=== PATIENT | female | born 2000 | race Two or more races ===

== ENCOUNTER 2024-06-02 14:15 | Outpatient (RCR) | payer MEDICAID, SELFPAY ==
--- NOTE | 2024-05-26 15:26 | XR_ITS ---
Examination: Biophysical profile, ultrasound Date and time of exam: May 26, 2024 1534 hours INDICATIONS: Diagnosis maternal obesity Technique: Multiple transabdominal sonographic images of the pelvis abdomen obtained. Attention is directed to the breathing movement, gross body movement, amniotic fluid volume and tone. Findings: Amniotic fluid index 12.2 cm Total biophysical profile is 8 of 8. breathing movement is 2. Gross body movement is 2. tone is 2. Qualitative amniotic fluid volume is 2 Impression: Biophysical profile is 8 of 8.
[2024-05-26 15:41] VITALS: BP 121/73; PULSE 105; RESP 16; TEMP 36.7
--- NOTE | 2024-06-02 14:21 | XR_ITS ---
Examination: Biophysical profile, ultrasound Date and time of exam: June 02, 2024 1427 hrs. Indications: Maternal obesity Technique: Multiple transabdominal sonographic images of the pelvis abdomen obtained. Attention is directed to the breathing movement, gross body movement, amniotic fluid volume and tone. Findings: Amniotic fluid index 12.4 cm Total biophysical profile is 8 of 8. breathing movement is 2. Gross body movement is 2. tone is 2. Qualitative amniotic fluid volume is 2 Impression: Biophysical profile is 8 of 8.
[2024-06-02 15:23] VITALS: BP 132/73; PULSE 98; RESP 16; TEMP 36.8
== END 2024-06-02 23:59 | disposition home or self-care (01) ==
LOC: S4S1 14:15
PROVIDERS: Referring Provider Student in an Organized Health Care Education/Training Program; Visit Provider Student in an Organized Health Care Education/Training Program
DX: O99.213 Obesity complicating pregnancy, third trimester (principal); E66.9 Obesity, unspecified; Z3A.38 38 weeks gestation of pregnancy
CPT/HCPCS: 59025; 76819

== ENCOUNTER 2024-06-06 15:19 | Inpatient (IN) | payer MEDICAID, SELFPAY ==
[2024-06-06] VITALS (19 sets, daily range): BP systolic 94–128; BP diastolic 57–82; PULSE 77–251; RESP 18; TEMP 36.8–37.1; O2SAT 78–98; BMI 35.9
[2024-06-06 16:15] LABS: Basophils % (Auto) 0 % (0-2.5); Eosinophils % (Auto) 1 % (0-10); Hematocrit 37.6 % (36.0-46.0); Hemoglobin 12.8 g/dL (12.0-16.0); Immature Granulocytes % (Auto) 0 % (0-0); Immature Granulocytes Auto 0.03 Thou/mm3 (0.00-0.00); Lymphocytes # (Auto) 1.4 Thou/mm3 (1.0-4.8); Lymphocytes % (Auto) 19 % (10-50); Mean Corpuscular Hemoglobin 29.8 pg (25.0-35.0); Mean Corpuscular Volume 87 fL (80-100); Monocytes # (Auto) 0.4 Thou/mm3 (0.0-0.8); Monocytes % (Auto) 5 % (0-12); Neutrophils # (Auto) 5.8 Thou/mm3 (1.8-7.7); Neutrophils % (Auto) 75 % (37-80); Nucleated Red Blood Cell % 0 /100 WBC (0); Platelet Count 183 Thou/mm3 (140-440); RDW Standard Deviation 40.5 fL (36.4-46.3); White Blood Count 7.8 Thou/mm3 (3.6-11.0)
--- NOTE | 2024-06-06 16:50 | ESHP_ITS ---
Documentation for date of: 06/06/24 OB Labor/Induct. HPI History of Present Illness Chief complaint: Patient presents for scheduled induction of labor : 2 Term pregnancies: 1 pregnancies: 0 Living children: 1 History of Abortions: Spontaneous and Elective: 0 History of Vaginal deliveries: 1 History of sections: No History of : No FREDA: 06/11/24 Gestational Age (weeks): 39 Gestational Age (days): 2 Indication for induction: other (Elevated maternal BMI) History of present illness: Patient is a 23-year-old -0-0-1 at 39 2/7 weeks status post vaginal delivery 5 years ago of a daughter without complications. The patient had IV pain medications during that labor. She presents as scheduled induction of labor from [facility] for maternal elevated BMI. On admission she reports irregular contractions, good movement, no loss of fluids, no vaginal bleeding. GBBS - History of Present Dating criteria: LMP confirmed by 1st trimester US Adequate Care: Yes Ultrasounds: normal mid trimester US Obstetrical complications: none Medical complications: none Labs Labs: Negative: Hepatitis B, HIV, Chlamydia, Gonorrhea and Group Beta Strep Past Medical History Surgical History SURGICAL: Negative Section Meds Home Medications and Allergies Allergies Allergy/AdvReac Type Severity Reaction Status Date / Time No Known Allergies Allergy Verified 01/04/21 21:32 OB Exam Physical Exam Vital signs: Pulse BP Pulse Ox 107 H 127/82 97 06/06/24 15:36 06/06/24 15:36 06/06/24 15:57 OB Results Labs 06/06/24 15:35 Labs: Short CBC 06/06/24 Range/Units 15:35 WBC 7.8 (3.6-11.0) Thou/mm3 Hgb 12.8 (12.0-16.0) g/dL Hct 37.6 (36.0-46.0) % Plt Count 183 (140-440) Thou/mm3 OB Assessment & Plan Assessment and Plan (1) Term : Status: Acute Assessment and plan: Admit for Cytotec induction of labor. All questions were answered all consents were signed. Plan Cytotec 50 mcg PO every 4 hours (2) Obesity affecting in third trimester: Status: Acute Additional Plan Induction method: per misoprostol protocol Plan: induction (2) Obesity affecting in third trimester Qualifiers: Obesity type affecting : other obesity due to excess calories Q ualified Code(s): O99.213 - Obesity complicating , third trimester; E66.09 - Other obesity due to excess calories
[2024-06-06] MEDS: MISOPROSTOL 50 mCg TABLET PO ×2 (17:01→22:08)
[2024-06-06 17:12] LABS: Syphilis Nonreactive (Nonreactive)
[2024-06-07] VITALS (29 sets, daily range): BP systolic 91–136; BP diastolic 54–82; PULSE 71–115; RESP 16–18; TEMP 36.4–36.8; O2SAT 98
[2024-06-07] MEDS: OXYTOCIN in NS 30 units 30 UNIT/500 ML BAG IV (06:30)
--- NOTE | 2024-06-07 07:30 | PD.LDPN ---
Documentation for date of: 06/07/24 OB Labor Progress Note Pain Control Pain control: tolerating well Pelvic Exam Dilation (cm): 3-4 Effacement (%): 80 station: -2 Amniotic membrane status: Intact Comments: AROMed and at 730. Clear bloody tinged fluid. Contractions Monitor mode: External Contraction intensity: Mild Status status: Category l Assessment and Plan Pitocin rate (mU/min): 2 Assessment: induction ongoing Plan OB labor note: continuous present management Comments: Patient's status post 50 mcg Cytotec x 2. Pitocin started overnight patient at 2 milliunits/min. She rates her contractions are a 5 out of 10. She does not desire epidural. AROM was performed and intrauterine pressure catheter placed will continue Pitocin augmentation as needed. Anticipate . heart tones 140s and reactive category 1.
[2024-06-07] MEDS: fentaNYL CIT INJ 50 mCg/ML AMP 2ML 100 MCG IVP ×2 (10:36→12:50)
[2024-06-07] MEDS: RINGERS LACTATED 1000 ML 1,000 ML 100 ML IV (10:43)
[2024-06-07] MEDS: OXYTOCIN in NS 20 units 20 UNIT/1,000 ML BAG 125 UNIT IV (14:30)
[2024-06-07] MEDS: METHYLERGONOVINE INJ 0.2 MG/ML VIAL IM (14:36)
[2024-06-07] MEDS: BENZO/LANO/ALOE (Dermoplast) 60 GM CAN 1 SPRAY TOP (14:41)
--- NOTE | 2024-06-07 14:46 | PD.LDDELS ---
Data ([place]) Data Hx Section: No Maternal Blood Type: A Pos Rubella Titre: Positive RPR: Non-reactive Labs: Negative: RPR, Hepatitis B, HIV, Chlamydia, Gonorrhea and Group Beta Strep : 2 Para: 1 Term: 1 : 0 Livin : 0 Delivery Data ([facility]) Labor Data Stimulated/Augmented: Yes Induction: Yes Method: Oxytocin (and PO cytotec 50 x 2, and AROM) ROM Date: 06/07/24 ROM Time: 07:26 Rupture Type: AROM Amniotic Fluid: Clear Delivery Data EDC: 06/11/24 EDC calculated by:: LMP/early US confirmation Labor Onset Stage 1 Date: 06/07/24 Labor Onset Stage 1 Time: 12:50 Labor Onset Stage 2 Date: 06/07/24 Labor Onset Stage 2 Time: 14:20 Delivery Date: 06/07/24 Delivery Time: 14:24 Gestational age (weeks): 39 Gestational age (days): 3 Placenta Delivery Date: 06/07/24 Placenta Delivery Time: 14:28 Length stage 2 (minutes): 3 Length stage 3 (minutes): 4 Delivered by: Sylvia Reeves Delivery nurse: Meghana Elias Supervisor Gluing at delivery: No Support person(s) at delivery: Pt mother and [id number] Other staff at delivery: 2nd Nurse Other staff at delivery: Blank, Kenan Delivery Method Delivery: Vaginal Delivery Type: Spontaneous Presentation: Vertex Position: OA Anesthesia Type Primary Anesthesia: Local Secondary Anesthesia: None Delivery Room Medications Post Delivery Medications: Ergotrate Placenta Placenta Delivery: Spontaneous Placenta Cultures Obtained: No Placenta Sent for Examination: No Cord Sample: Cord Blood Obtained Episiotomy Episiotomy: None Lacerations #1: Perineal: 1st degree Perineal repair Sutures used for repair: other (2-0 chromic) EBL Estimated blood loss (ml): 300 Umbilical Cord Umbilical Vessels: 3 Nuchal Cord: x1 Body Cord: None Additional Procedures The patient is a 24-year-old -0-0-1 at 39 4/7 weeks being induced for an elevated BMI. The pt made slow progress overnight. The patient was 8 cm approximately 10 minutes before delivery and felt pressure and began pushing. She pushed through 2 contractions delivering a liveborn male at 1424. Findings: Liveborn male in the ALYSE presentation with a loose nuchal cord x 1, no meconium. Apgars were 9 and 9 weight was 3370 g or approximately 7 pounds 7 ounces. After delivery some brisk bleeding was noted, this was treated with vigorous uterine massage, IV Pitocin and IM Methergine. The patient sustained a very small first-degree perineal laceration repaired under local anesthesia using one single [id number] suture of 2-0 chromic. Complications were none. Condition, both mother and were in stable condition in the delivery room. Complications Complications: None [place] Data ([place]) [place] Data order: 2 Infant Gender: Male Infant Weight Grams: 3370 1 Minute Total: 9 5 Minute Total: 9
[2024-06-07] MEDS: IBUPROFEN TAB 400 MG TABLET 800 MG PO (14:49)
[2024-06-07 20:50] LABS: Basophils % (Auto) 0 % (0-2.5); Eosinophils % (Auto) 0 % (0-10); Hemoglobin 10.1 g/dL (12.0-16.0); Immature Granulocytes % (Auto) 0 % (0-0); Immature Granulocytes Auto 0.03 Thou/mm3 (0.00-0.00); Lymphocytes # (Auto) 1.3 Thou/mm3 (1.0-4.8); Lymphocytes % (Auto) 11 % (10-50); Mean Corpuscular HGB Conc 34.8 g/dl (31.0-37.0); Mean Corpuscular Hemoglobin 30.4 pg (25.0-35.0); Mean Corpuscular Volume 87 fL (80-100); Monocytes # (Auto) 0.7 Thou/mm3 (0.0-0.8); Monocytes % (Auto) 6 % (0-12); Neutrophils # (Auto) 9.7 Thou/mm3 (1.8-7.7); Neutrophils % (Auto) 83 % (37-80); Nucleated Red Blood Cell % 0 /100 WBC (0); Platelet Count 141 Thou/mm3 (140-440); RDW Standard Deviation 39.9 fL (36.4-46.3); Red Blood Count 3.32 Miln/mm3 (4.00-5.20); White Blood Count 11.8 Thou/mm3 (3.6-11.0)
[2024-06-07] MEDS: DOCUSATE SOD 100 MG CAPSULE PO (20:51)
[2024-06-08 04:07] VITALS: BP 116/75; PULSE 79; RESP 16; TEMP 36.9; O2SAT 98
--- NOTE | 2024-06-08 07:14 | PD.LDPPPRG ---
Subjective Subjective Interval history: Patient denies any problem or complaint. She is voiding and ambulating and tolerating a regular diet. She denies any excessive vaginal bleeding or dizziness or lightheadedness. She denies any chest pain palpitations or shortness of breath or lower extremity pain. Exam Vital Signs Temp Pulse Resp BP Pulse Ox O2 Del Method 98.4 F 79 16 116/75 98 Room Air 06/08/24 04:07 06/08/24 04:07 06/08/24 04:07 06/08/24 04:07 06/08/24 04:07 06/08/24 04:07 Routine Respiratory Exam Comments: Clear to auscultation bilaterally Routine Cardiovascular Exam Comments: Regular rate and rhythm Routine Abdominal Exam Comments: Fundus is firm and nontender Routine Extremities Exam Comments: Nontender Objective Labs 06/07/24 20:43 Labs: Laboratory Results - last 24 hr 06/07/24 20:43 WBC 11.8 H D RBC 3.32 L Hgb 10.1 L D Hct 29.0 L MCV 87 MCH 30.4 MCHC 34.8 RDW Std Deviation 39.9 Plt Count 141 D Neut % (Auto) 83 H Lymph % (Auto) 11 Howell % (Auto) 6 Eos % (Auto) 0 Baso % (Auto) 0 Neut # (Auto) 9.7 H Lymph # (Auto) 1.3 Howell # (Auto) 0.7 Eos # (Auto) 0.0 Baso # (Auto) 0.0 Immature Gran # (Auto) 0.03 H Absolute Nucleated RBC 0.00 Immature Gran % 0 Nucleated RBC % 0 Assessment & Plan Problem List (1) Term : Status: Acute (2) Obesity affecting in third trimester: Status: Acute Assessment Comment Assessment comment: day #1 status post spontaneous vaginal delivery Discharge home discharge instructions given follow-up in the office in 6 weeks Time Spent With Patient Time: Total time spent is greater than 50% in coordination of care (as documented) at patient's floor/unit and/or counseling patient:
--- NOTE | 2024-06-08 07:16 | PD.LDDS ---
DS: Providers Provider Date of admission: 06/06/24 15:19 Primary care physician: Physician No Primary/Family Admitting Provider: Sylvia Reeves MD (OB Clinic) Attending Provider on Admission: Manpreet Roman MD Consults: 06/07/24 14:44 Referral Routine Comment: Attending Provider on DC: Manpreet Roman MD Discharging Provider: Manpreet Roman MD DS: Diagnosis Problem List Completed Was Problem List Reviewed/Reconciled?: Yes Summary/Hosp Course Brief History: Patient is a 23-year-old -0-0-1 at 39 2/7 weeks status post vaginal delivery 5 years ago of a daughter without complications. The patient had IV pain medications during that labor. She presents as scheduled induction of labor from [facility] for maternal elevated BMI. On admission she reports irregular contractions, good movement, no loss of fluids, no vaginal bleeding. GBBS - Time Spent with Patient Time attestation: Total time spent providing and/or coordinating discharge services: Exam Vital Signs Temp Pulse Resp BP Pulse Ox O2 Del Method 98.4 F 79 16 116/75 98 Room Air 06/08/24 04:07 06/08/24 04:07 06/08/24 04:07 06/08/24 04:07 06/08/24 04:07 06/08/24 04:07 Discharge Plan Plan Patient Disposition: HOME (Self Care) Patient condition on transfer: Stable Prescriptions/Referrals Prescriptions/Med Rec: New ibuprofen 600 mg tablet 600 mg PO Q6H PRN (Reason: pain) Qty: 30 0RF Discontinued azithromycin 250 mg tablet See Rx Instructions .ROUTE .COMPLEX Qty: 6 0RF Rx Instructions: For 250 mg dose pack: take 500 mg today (day 1), then 250 mg for 4 days (days 2-5) acetaminophen [Tylenol Extra Strength] 500 mg tablet 1,000 mg PO QID PRN (Reason: fever or pain) Qty: 30 0RF Referrals: No Primary/Family,Physician [Primary Care Provider] - Patient/Caregiver Discharge Instructions Discharge Activity: activity as tolerated Other Discharge Activity Instructions:: Follow up office 6 weeks Print Language: Divehi Stand Alone Forms: Ember Award Info., Patient Portal Info Letter Discharge Order Discharge Orders: Discharge (Routine); Ordered 06/08/24 Ordered By: Manpreet Roman Planned Discharge Date 06/08/24
[2024-06-08 08:00] VITALS: BP 115/77; PULSE 80; RESP 16; TEMP 36.4; O2SAT 98
[2024-06-08] MEDS: DOCUSATE SOD 100 MG CAPSULE PO (08:33)
[2024-06-08 11:45] VITALS: BP 101/71; PULSE 88; RESP 17; TEMP 36.9; O2SAT 97
== END 2024-06-08 17:40 | disposition home or self-care (01) | DRG 560 ==
LOC: S4SX 15:26 → S4NX 06-07 16:46
PROVIDERS: Admitting Provider Obstetrics & Gynecology; Visit Provider Specialist
DX: O99.214 Obesity complicating childbirth (principal); Z37.0 Single live birth; Z3A.39 39 weeks gestation of pregnancy; O70.0 First degree perineal laceration during delivery; O69.81X0 Labor and delivery complicated by cord around neck, without compression, not applicable or unspecified; E66.09 Other obesity due to excess calories
CPT/HCPCS: 36415; 59409; 85025; 86780; 86850; 86900; 86901; J2210; J2590; J3010; J7120; A9270

== ENCOUNTER 2024-12-08 08:48 | Outpatient (AMB) | payer MEDICAID, SELFPAY ==
[2024-12-08 09:07] VITALS: BP 118/82; PULSE 76; RESP 14; TEMP 36.5; O2SAT 98; BMI 35.4
--- NOTE | 2024-12-08 09:07 | OBCLNT_ITS ---
Vital Signs 12/08/24 09:07 Height 1.63 m Height Method Measured Weight 93.667 kg Weight Measurement Method Standing Scale BMI 35.4 BP 118/82 Blood Pressure Source Automatic Cuff Blood Pressure Location Left Upper Arm Position Sitting Respiration 14 Pulse 76 Pulse Source Monitor Temp 97.7 F Temp Source Oral Pulse Oximetry (%) 98 Oxygen Delivery Method Room Air Allergies/Home Meds Allergies & Medications Allergies No Known Allergies Allergy (Verified 12/08/24 09:08) Intake Visit Data Collection New Patient or Established: Established Patient (seen at [facility] within 3 years) Reason for Visit:: INITIAL CARE Seen by Clinical Staff ONLY (RN/MA): No Safety Physician Required: No Do You Feel Safe at Home: Yes Authorities Contacted: N/A PCP or OBGYN visit in last 3 months: Yes Hx Now: Yes Are you currently on any form of Control: No Last menstrual period: 09/27/24 Pain Present Currently: No Pain Scale Used: Moreno-Capps/Numerical Pain scale:: 0 Smoking Status Smoking Status: Former smoker Questionnaires Covid-19 Vaccine Questionnaire Has patient been vacinated for Covid-19 Have you been vacinated for Covid-19: No PHQ-9 PHQ-2 Over the last 2 weeks, how often have you been bothered by any of the following problems? 1. Little interest or pleasure in doing things: not at all 2. Feeling down, depressed, or hopeless: not at all Total score: 0 PHQ-9 3. Trouble falling or staying asleep, or sleeping too much: Not at all 4. Feeling tired or having little energy: Not at all 5. Poor appetite or overeating: Not at all 6. Feeling bad about yourself - or that you are a failure or have let yourself or your family down: Not at all 7. Trouble concentrating on things, such as reading the newspaper or watching television: Not at all 8. Moving or speaking so slowly that other people could have noticed? - Or the opposite - being so fidgety or restless that you have been moving around a lot more than usual: not at all 9. Thoughts that you would be better off or of hurting yourself in some way: Not at all Total score: 0 Source: Developed by Drs. Tito Richey, Rebeca B.W. Roel Ramos and colleagues, with an educational luann from [employer]. Depression screen completed yes Social History Living Situation History Lives With: Family Housing: House Tobacco History Smoking Status: Former smoker Second Hand Smoke Exposure: No Alcohol History Alcohol Intake: Former Alcohol Intake Frequency: holidays/special occasions only Domestic Abuse History Do You Feel Safe at Home: Yes History of Present Illness HPI Narrative 24-year-old 3 para 2 for OBI. Patient's last period September 27, 2024. Estimated due date July 03, 2025. Patient and her partner are very happy about the . Patient denies any SAB complaints like bleeding or cramping. She denies movement. Patient denies any history of social habits. She denies surgeries. And denies any chronic illnesses. 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: Past Medical History Past Medical History: No Hx Neurological Disorders, No Hx Breast Cancer, Yes Hx Cardiac Disorders, Yes Hx Hypertension, No Hx Cancer, No Hx Blood Disorders, No Hx Gastrointestinal Disorders, No Hx Renal Disease, No Hx Diabetes Mellitus Type 1 and No Hx Diabetes Mellitus Type 2 OB Initial Visit OB Flowsheet OB Flowsheet Initial Weight: Not Recorded Date -?-?-?-?-?-?-?-?-?-?-?-?- EGA Weight BP Alb Glu CTX Pres Fundal ht FHR Mov Dilation Station Effacement Hx Notes Visit Note 12/08/24 -?-?-?-?-?-?-?-?-?-?-?-?- 10w 2d 93.667 kg 118/82 absent unknown 10 135 absent 24-year-old 2 para 2 for initial OB. Her last period September 27, 2024. This gives a due date of July 03, 2025. Patient has sure dates she checked.'s. She has not had any problems so far. No complaints of nausea or vomiting. She.denies any SAB complaints at this time Schedule ultrasound with Dr. Pineda for anatomy scan. Continue prenatals. Patient was given lab slip for OB panel, NIPT, and carrier screening. And A1c. Return in 4 weeks OB check Menstrual History Menstrual reliability: unknown Flow: normal Menstrual regularity: irregular Monthly: No Age at menarche: 14 On control pills at conception: No Associated symptoms (LMP): Reports nausea, fatigue and breast tenderness OB History : 3 Para: 2 # of Living Children: 2 Delivery History 1st : Child's name: JASSI date: 02/09/19 sex: female Gestational age at delivery (weeks): 40 Delivery type: vaginal Delivery complications: NONE History of depression before or after : No 2nd : Child's name: LEANN date: 06/07/24 sex: male Gestational age at delivery (weeks): 40 Delivery type: vaginal Delivery complications: NONE History of depression before or after : No Infection History & Risk Evaluation History of STDs: none Genetic Screening & History Genetic Screening/Teratology Counseling - Includes patient, baby's father, or anyone in either family with: 1. Patient's age 35 years or older as of estimated date of delivery: No 2. Thalassemia (Belgian, Maori, Mediterranean, or Background); MCV less than 80: No 3. Neural Tube Defect (Meningomyelocele, Spina Bifida, or Anencephaly): No 4. Congenital Heart Defect: No 5. Down Syndrome: No 6. Colten-Sachs (Ashkenazi Yazdanism, Cajun, Italian Iranian): No 7. Zabrina Disease (Ashkenazi Yazdanism): No 8. Familial Dysautonomia (Ashkenazi Yazdanism): No 9. Sickle Cell Disease or Trait (): No 10. Hemophilia or other blood disorders: No 11. Muscular Dystrophy: No 12. Cystic Fibrosis: No 13. Kingman's Chorea: No 14. Mental Retardation/Autism: No 15. Other inherited genetic or chromosomal disorder: No 16. Maternal Metabolic Disorder (EG,TYPE 1 Diabetes, PKU): No 17. Patient or baby's father had a child with defects not listed above: No 18. Recurrent loss or a stillbirth: No 19. Medications (including supplements, vitamins, herbs or otc drugs)/illicit/recreational drugs/alcohol since last menstrual period: No 20. Any other: No Infection History 1. Live with someone with TB or exposed to TB: No 2. Rash or viral illness since last menstrual period: No 3. Hepatitis B,C: No Other (see comments) Source: [employer] Review of Systems Review of Systems Systems Reviewed: All systems reviewed, normal except as documented Constitutional Constitutional: Reports fatigue Gastrointestinal Gastrointestinal: Reports nausea Endocrine Endocrine: Reports fatigue Exam General Limitations: no limitations General Appearance: alert, in no apparent distress, comfortable, cooperative, healthy appearing, well developed and well groomed Head Head exam: atraumatic, normocephalic and normal inspection ENT ENT exam: Present normal exam, normal oropharynx and mucous membranes moist Chest Chest inspection: Present normal inspection and symmetric chest wall rise Resp Respiratory exam: Present normal lung sounds bilaterally Card Cardiovascular exam: Present regular rate, normal rhythm and normal heart sounds Abdominal Abdominal exam: Present soft and normal bowel sounds Psych Psychiatric exam: Present normal affect and normal mood Office Procedures OBC Clinic LOC & Office Proc's Nursing/Assessment Patient Status: Established Patient OB Clinic Nursing Assessment: Medication Reconciliation, Update PMH in EMR and Vital Signs OB Clinic Coordination of Care: Complex Care and Chronic Disease 1-5, Consent,records obtained, informed consent, Education Simp Pt/Fam, 1 Ins Authorization, Lab and Imaging orders, Results/Orders obtained and Staff clarify orders Special Needs: Heart tones Established Patient Charge Established Patient Point Assignment: 150 Established Patient Point Charge: EP Level 4 (120-155) Assessment & Plan Diagnosis / Problem List (1) Encounter for supervision of high risk in first trimester, antepartum: Status: Acute Plan Is scheduled dating sono with Dr. Pineda. Discussed SAB precautions. OB panel with NIPT, carrier screens and A1c and RPR. Continue prenatals and return in 4 weeks OB check Additional Plan Follow Up: 4 Weeks (obc)
== END 2024-12-08 09:45 | disposition home or self-care (01) ==
PROVIDERS: Supervising Provider Advanced Practice Midwife; Visit Provider Advanced Practice Midwife
DX: O09.91 Supervision of high risk pregnancy, unspecified, first trimester (principal); Z3A.10 10 weeks gestation of pregnancy
CPT/HCPCS: 99214; G0463

== ENCOUNTER 2025-01-15 13:32 | Outpatient (AMB) | payer MEDICAID, SELFPAY ==
--- NOTE | 2025-01-15 14:01 | OBCLNT_ITS ---
Vital Signs 01/15/25 14:05 Height 1.63 m Height Method Stated Weight 91.399 kg Weight Measurement Method Standing Scale BMI 34.4 BP 124/65 Blood Pressure Source Automatic Cuff Blood Pressure Location Left Upper Arm Position Sitting Respiration 18 Pulse 85 Pulse Source Monitor Temp 97.2 F Temp Source Oral Pulse Oximetry (%) 98 Oxygen Delivery Method Room Air Allergies/Home Meds Allergies & Medications Allergies No Known Allergies Allergy (Verified 01/15/25 14:02) Medication Reconciliation No Known Home Medications 01/15/25 [History Confirmed 01/15/25] Immunizations Immunizations Flu Vaccine in the Last 12 Months: No Flu Vaccine Exclusion Criteria: Refused by Patient and No Exclusion Criteria Care OB Visit Log OB Flowsheet Initial Weight: Not Recorded Date -?-?-?-?-?-?-?-?-?-?-?-?- EGA Weight BP Alb Glu CTX Pres Fundal ht FHR Mov Dilation Station Effacement Hx Notes Visit Note 12/08/24 -?-?-?-?-?-?-?-?-?-?-?-?- 10w 2d 93.667 kg 118/82 absent unknown 10 135 absent 24-year-old 2 para 2 for initial OB. Her last period September 27, 2024. This gives a due date of July 03, 2025. Patient has sure dates she checked.'s. She has not had any problems so far. No complaints of nausea or vomiting. She.denies any SAB complaints at this time Schedule ultrasound with Dr. Pineda for anatomy scan. Continue prenatals. Patient was given lab slip for OB panel, NIPT, and carrier screening. And A1c. Return in 4 weeks OB check 01/15/25 -?-?-?-?--?-?-?-?-?-?-?-?- 15w 5d 91.399 kg 124/65 absent unknown 15 145 absent Light movement. Denies leaking, bleeding, contractions. No OB complaints. MFM appointment at Dr. Pineda is pending aFP today . Discussed labs and NIPT. Maternal- medicine ultrasound is pending. Discussed SAB precautions. 24 weeks OB check FREDA Calculator Estimated Delivery Date Method Current WG Current Estimate 07/04/25 LMP (Certain) 15w 5d Notes Visit Date: 01/15/25 Last Updated by: Jamia Ascencio CNM OB panel: A+, ABS-, RPR:nr, rub NI, hbsag-, hiv-, hc, GC/CT-, 37.5, UA- , NIPT-/BOY, carrier screen- Visit Date: 12/08/24 Last Updated by: Jamia Ascencio CNM 24 yo , IUP 10w2 Office Procedures OBC Clinic LOC & Office Proc's Nursing/Assessment Patient Status: Established Patient OB Clinic Nursing Assessment: Medication Reconciliation, Update PMH in EMR and Vital Signs OB Clinic Coordination of Care: Consent,records obtained, informed consent, Education Simp Pt/Fam, Lab and Imaging orders, Results/Orders obtained and Staff clarify orders Special Needs: Heart tones Established Patient Charge Established Patient Point Assignment: 110 Established Patient Point Charge: EP Level 3 (80-115) Assessment & Plan Diagnosis / Problem List (1) Encounter for supervision of high risk in second trimester, antepartum: Status: Acute Plan Discussed lab results. aFP today. MFM appointment pending. SAB precautions. 24 weeks OB check Additional Plan Follow Up: 4 Weeks (obc)
[2025-01-15 14:05] VITALS: BP 124/65; PULSE 85; RESP 18; TEMP 36.2; O2SAT 98; BMI 34.4
== END 2025-01-15 14:33 | disposition home or self-care (01) ==
LOC: HODSOBC 13:32
PROVIDERS: Supervising Provider Advanced Practice Midwife; Visit Provider Advanced Practice Midwife
DX: O09.92 Supervision of high risk pregnancy, unspecified, second trimester (principal); Z3A.15 15 weeks gestation of pregnancy; Z28.21 Immunization not carried out because of patient refusal
CPT/HCPCS: 99213; G0463

== ENCOUNTER 2025-01-29 14:17 | Emergency (ER) | payer MEDICAID, SELFPAY ==
[2025-01-29 14:18] VITALS: BMI 32.5
[2025-01-29 14:36] VITALS: BP 119/56; PULSE 91; RESP 19; TEMP 37.1; O2SAT 97
--- NOTE | 2025-01-29 14:38 | XR_ITS ---
Examination: Complete OB ultrasound greater than 14 weeks Date and time of exam: January 29, 2025, 1512 hours INDICATIONS: Vaginal bleeding today Findings: Viable intrauterine single fetus with single amniotic sac presentation cephalic Placenta posterior multiple venous lakes, the largest 32 mm grade 2 Medical cord insertion seen Amniotic fluid adequate Cervix 3.2 cm Ovaries obscured by bowel gas. Composite estimated gestational age based on BPD, head circumference, abdominal circumference, femur length is 17 weeks 5 days Estimated weight 196 g. Survey of intracranial anatomy, spinal anatomy, abdominal anatomy, four-chamber heart performed with no abnormalities identified. Impression: Viable intrauterine gestation cephalic presentation.
[2025-01-29 14:57] LABS: Basophils # (Auto) 0.0 Thou/mm3 (0.0-0.2); Basophils % (Auto) 0 % (0-2.5); Eosinophils # (Auto) 0.1 Thou/mm3 (0.0-0.5); Eosinophils % (Auto) 1 % (0-10); Hematocrit 37.3 % (36.0-46.0); Hemoglobin 12.3 g/dL (12.0-16.0); Immature Granulocytes Auto 0.03 Thou/mm3 (0.00-0.00); Lymphocytes # (Auto) 1.5 Thou/mm3 (1.0-4.8); Lymphocytes % (Auto) 17 % (10-50); Mean Corpuscular HGB Conc 33.0 g/dl (31.0-37.0); Mean Corpuscular Hemoglobin 29.1 pg (25.0-35.0); Mean Corpuscular Volume 88 fL (80-100); Monocytes # (Auto) 0.4 Thou/mm3 (0.0-0.8); Monocytes % (Auto) 5 % (0-12); Neutrophils # (Auto) 6.4 Thou/mm3 (1.8-7.7); Neutrophils % (Auto) 76 % (37-80); Nucleated Red Blood Cell # 0.00 Thou/mm3 (0.00-0.00); Nucleated Red Blood Cell % 0 /100 WBC (0); Platelet Count 207 Thou/mm3 (140-440); RDW Standard Deviation 43.0 fL (36.4-46.3); Red Blood Count 4.22 Miln/mm3 (4.00-5.20); White Blood Count 8.5 Thou/mm3 (3.6-11.0)
--- NOTE | 2025-01-29 15:20 | EDNOTE_ITS ---
ED OB Contraction Preg RMI/HPI General Chief complaint: Vaginal Bleeding Stated complaint: VAGINAL SPOTTING; 17 WEEKS OB Time Seen by Provider: 01/29/25 14:29 Source: patient Arrival date/time: 01/29/25 14:17 24-year-old female with no known medical history presents to the emergency room with a chief complaint of vaginal spotting x 1 day. Patient is currently 17 weeks . She is a G3, P2. Mode of arrival: ambulatory Limitations: no limitations Related Data Previous Rx's ?Medication ?Instructions ?Recorded cephalexin 500 mg capsule 500 mg PO BID 7 days #14 cap s 01/29/25 Allergies Allergy/AdvReac Type Severity Reaction Status Date / Time No Known Allergies Allergy Verified 01/29/25 14:19 Review of Systems Review of Systems Systems Reviewed: All systems reviewed, normal except as documented Constitutional Constitutional: Reports system reviewed and no additional complaints, except as documented, Denies fatigue, Denies fever(s), Denies headache(s) and Denies weakness Eyes Eyes: Reports system reviewed and no additional complaints, except as documented, Denies blurry vision and Denies change in vision ENT Ears, Nose, Mouth, and Throat: Reports system reviewed and no additional complaints, except as documented, Denies otalgia, Denies headache(s), Denies nasal congestion, Denies throat swelling and Denies vertigo Cardiovascular Cardiovascular: Reports system reviewed and no additional complaints, except as documented, Denies chest pain, Denies dyspnea and Denies dyspnea on exertion Respiratory Respiratory: Reports system reviewed and no additional complaints, except as documented, Denies chest congestion, Denies cough, Denies dyspnea, Denies dyspnea on exertion and Denies wheezing Gastrointestinal Gastrointestinal: Reports system reviewed and no additional complaints, except as documented, Denies abdominal pain, Denies cramping, Denies nausea and Denies vomiting Genitourinary Genitourinary: Reports system reviewed and no additional complaints, except as documented and Reports abnormal vaginal bleeding Musculoskeletal Musculoskeletal: Reports system reviewed and no additional complaints, except as documented and Denies back pain Integumentary/Breasts Skin/Breast: Reports system reviewed and no additional complaints, except as documented and Denies wounds Neurologic Neurologic: Reports system reviewed and no additional complaints, except as documented, Denies confusion, Denies headache(s), Denies lack of coordination, Denies vertigo and Denies weakness Psychiatric Psychiatric: Reports system reviewed and no additional complaints, except as documented, Denies anxiety, Denies confusion, Denies depression, Denies paranoia, Denies suicidal ideation and Denies tactile hallucinations Endocrine Endocrine: Reports system reviewed and no additional complaints, except as documented and Denies fatigue Hematologic/Lymphatic Hematologic/Lymphatic: Reports system reviewed and no additional complaints, except as documented and Denies lymphadenopathy Allergic/Immunologic Allergic/Immunologic: Reports system reviewed and no additional complaints, except as documented, Denies throat swelling, Denies urticaria and Denies wheezing Past Medical History Past Medical History NEUROLOGIC: Negative Neurological Disorders CARDIAC: Positive Cardiac Disorders and Hypertension; Negative Congestive Heart Failure RESPIRATORY: Negative Chronic Obstructive Pulmonary Disease (COPD) GASTROINTESTINAL: Negative Gastrointestinal Disorders, Hepatitis or Colorectal Cancer GENITOURINARY: Negative Genitourinary Disorders, Renal Disease or Prostate Cancer REPRODUCTIVE: Positive Gonorrhea and Previous Pregnancies; Negative Breast Cancer, Pelvic Inflammatory Disease or Testicular Cancer MUSCULOSKELETAL: Negative Musculoskeletal Disorders or Bone Cancer ENDOCRINE: Negative Endocrine Disorders, Diabetes Mellitus Type 1 or Diabetes Mellitus Type 2 HEMATOLOGIC: Negative Blood Disorders PSYCHO/SOCIAL: Negative Depression or Anxiety OTHER HISTORY: Negative Hospitalization, Autoimmune Disease, Down Syndrome, Developmental Delay, Shingles, Falls, Blood Transfusions, Blood Transfusion Reaction, Anesthesia Reactions, Organ Transplant, Chemotherapy, Radiation Therapy, Hyperbaric Therapy, MRSA, VRSA, Vancomycin-Resistant Enterococci, Human Immunodeficiency Virus (HIV), Chicken Pox, Measles, Mumps, Pertussis, Clostridium Difficile, Cancer, Breast Cancer, Cervical Cancer, Colorectal Cancer, Lung Cancer, Ovarian Cancer, Prostate Cancer or Testicular Cancer Family History FAMILY HISTORY: Positive Family Cancer; Negative Family Psychiatric Problems, Family Respiratory Disorders, Family Cardiac Disorders, Family Gastrointestinal Problems, Family Surgery or Family Anesthesia Reaction Surgical History SURGICAL: Negative Cardiac Surgery, Endocrine Surgery, Ear Surgery, Abdominal Surgery, Nephrectomy, Joint Replacement, Neurologic Surgery, Section or Organ Transplant Social History SMOKING STATUS: Never smoker SECOND HAND EXPOSURE: No ED Exam General Limitations: Present no limitations General appearance: Present alert and in no apparent distress Head Head exam: Present atraumatic Eye Eye exam: Present normal appearance, PERRL and EOMI ENT ENT exam: Present normal exam, normal oropharynx and mucous membranes moist Neck Neck exam: Present normal inspection, full ROM and trachea midline Chest Chest inspection: Present normal inspection and symmetric chest wall rise Respiratory Respiratory exam: Present normal lung sounds bilaterally Cardiovascular Cardiovascular exam: Present regular rate, normal rhythm and normal heart sounds Abdominal Exam Abdominal exam: Present soft and normal bowel sounds; Absent tenderness Extremities Exam Extremities exam: Present normal inspection and full ROM Back Exam Back exam: Present normal inspection and full ROM Neurological Exam Neurological exam: Present alert, oriented X3 and CN II-XII intact Psychiatric Psychiatric exam: Present normal affect and normal mood Skin Skin exam: Present warm, dry, intact and normal color Course Quality Measures none Orders Category Date Time Status US OB >= 14 weeks Fetus Stat Exams 01/29/25 14:38 Completed ABO/RH Type Stat Lab 01/29/25 14:45 Completed Beta HCG,Quantitative Stat Lab 01/29/25 14:45 Completed CBC Stat Lab 01/29/25 14:45 Completed CMP [Comprehensive Metabolic Panel] Stat Lab 01/29/25 14:45 Completed UA [Urinalysis] Stat Lab 01/29/25 15:50 Completed Vital Signs Vital signs: Vital Signs Temperature 98.7 F 01/29/25 14:36 Pulse Rate 91 01/29/25 14:36 Respiratory Rate 19 01/29/25 14:36 Blood Pressure 119/56 L 01/29/25 14:36 Pulse Oximetry (%) 97 01/29/25 14:36 Oxygen Delivery Method Room Air 01/29/25 14:36 Vaginal Bleeding MDM Narrative MDM Narrative: 24-year-old female with no known medical history presents to the emergency room with a chief complaint of vaginal spotting x 1 day. Patient is currently 17 weeks . She is a G3, P2. Patient is hemodynamically stable and in no apparent distress Patient is afebrile not tachycardic not tachypneic with a normal blood pressure Physical examination shows a soft nontender abdomen. The patient denies any bilateral lower abdominal tenderness or any pelvic pain. Patient states she has an episode of vaginal spotting earlier this morning but during her last void there was no bleeding. Patient also states that the bleeding was only when she was wiping and there was no clots. Ultrasound OB was completed and shows a viable intrauterine gestation with cephalic presentation. Patient is currently 17 weeks and 5 days. Patient's hCG levels are at 12,391 CBC CMP were negative for any acute findings. Urinalysis showed a UTI. Antibiotics are sent to the patient's pharmacy Patient was discharged and educated to follow-up with primary care provider in the next 24 to 48 hours and return to the emergency room for any evidence of worsening signs or symptoms Patient data External records reviewed:: [facility] previous records Clinical information provided by:: patient Social determinants that could affect healthcare access:: none Patient has the following chronic illnesses:: No chronic How is presenting disease/condition affected by chronic disease/condition?: no chronic disease Evaluation data The following diagnostics were reviewed and interpreted by me:: lab results and radiology exam(s) Lab and/or radiology exams considered but not ordered:: Labs and radiology exams considered and ordered Interpretation Summary: Ultrasound OB-Findings: Viable intrauterine single fetus with single amniotic sac presentation cephalic Placenta posterior multiple venous lakes, the largest 32 mm grade 2 Medical cord insertion seen Amniotic fluid adequate Cervix 3.2 cm Ovaries obscured by bowel gas. Composite estimated gestational age based on BPD, head circumference, abdominal circumference, femur length is 17 weeks 5 days Estimated weight 196 g. Survey of intracranial anatomy, spinal anatomy, abdominal anatomy, four-chamber heart performed with no abnormalities identified. Impression: Viable intrauterine gestation cephalic presentation. Medications / Prescriptions Medications or Prescriptions considered but not ordered:: Rx given Medication administrations:: Rx given Consultations Consultation(s) initiated? (list below): No Diagnosis Vaginal Bleeding Differential Diagnosis: threatened , ectopic without intrauterine , vaginal bleeding and other Most likely diagnosis given after review of the tests above:: Urinary tract infection Admission Indicated Admission indicated?: not indicated Admission Request Was there a request for admission?: No Disposition Plan Disposition Plan: Discharge Discharge Attestation Discharge Attestation: The patient and all family members were given an opportunity to ask questions and understood the discharge instructions. Discharge instructions specifically effects, indications for sooner follow up or return to the emergency department, and the expected course of current diagnosis. Patient condition: Stable Discharge Plan Plan Patient Disposition: HOME (Self Care) Discharge Disposition comment: Stable Prescriptions/Referrals Prescriptions/Med Rec: New cephalexin 500 mg capsule 500 mg PO BID 7 Days Qty: 14 0RF Referrals: Edmond Deluca MD [Primary Care Provider, Family Practice] - In 1 week Problem List Clinical Impression: Urinary tract infection Patient/Caregiver Discharge Instructions Education Materials: ED CYSTITIS Female Adult Additional Instructions: Please follow-up with your [employer] IN OPERATOR in the next 24 to 48 hours Your ultrasound was completed and shows a in good standing Your urinalysis showed a urinary tract infection. Antibiotics sent to your pha rmacy please pick them up and take them as indicated For any evidence of worsening signs or symptoms return to the emergency room immediately Print Language: Sen[place]alese Stand Alone Forms: Ember Award Info., Work/School Release, Patient Portal Info Letter PA/AERIAL SURVEY TECHNICIAN Supervising Physician PA/AERIAL SURVEY TECHNICIAN Supervising Physician: Dr. Lemos
[2025-01-29 15:38] LABS: Alanine Aminotransferase 11 U/L (10-49); Albumin, Serum 4.7 gm/dL (3.5-5.0); Albumin/Globulin Ratio 1.7 (1.2-2.2); Alkaline Phosphatase 53 U/L (46-116); Anion Gap 11 (7-16); Aspartate Amino Transferase 19 U/L (0-34); BUN/Creatinine Ratio 10 Ratio (12-20); Bilirubin,Total 0.3 mg/dL (0.3-1.2); Blood Urea Nitrogen < 5 mg/dL (9-23); Calcium 9.5 mg/dL (8.3-10.6); Calcium (Corrected) 9.5 mg/dL (8.5-10.1); Carbon Dioxide 24.6 mMol/L (20.0-31.0); Chloride 105 mMol/L (98-107); Creatinine (Component) 0.5 mg/dL (0.6-1.3); Estimated Creatinine Clearance 187.5 mL/min (>60); Globulin 2.7 gm/dL (2.3-3.5); Glucose 94 mg/dL (74-106); Osmolality,Calculated 278 (275-295); Potassium 3.8 mMol/L (3.4-5.1); Sodium 141 mMol/L (136-145); Total Protein 7.4 gm/dL (5.7-8.2); eGFR > 60 See Note
[2025-01-29 15:50] LABS: Beta HCG,Quantitative 12391 mIU/mL (<5.0)
[2025-01-29 15:58] LABS: Collection Type, Urine Clean Catch
[2025-01-29 16:11] LABS: Bacteria,Urine Rare; Bilirubin,Urine Negative (Negative); Blood,Urine Negative (Negative); Color,Urine Lt-Yellow (Lt Yel-Yel); Glucose, Urine Negative (Negative); Ketones,Urine Negative (Negative); Leukocyte Esterase,Urine Positive (Negative); Nitrite,Urine Negative (Negative); PH,Urine 7.0 (5.0-7.0); Protein,Urine Negative (Neg - Trace); RBC,Urine 6 /hpf (0-3); Specific Gravity,Urine 1.006 (1.001-1.035); Squamous Epithelial Cell,Urine 8 /hpf (0-5); Urobilinogen,Urine Negative mg/dL (0.0-1.0); WBC,Urine 46 /hpf (0-5)
[2025-01-29 16:29] LABS: Clarity,Urine Hazy (Clear/Hazy)
== END 2025-01-29 16:39 | disposition home or self-care (01) ==
PROVIDERS: Nurse Practitioner Family; Emergency Provider Family Medicine; PCP Family Medicine
DX: O23.42 Unspecified infection of urinary tract in pregnancy, second trimester (principal); N39.0 Urinary tract infection, site not specified; Z3A.17 17 weeks gestation of pregnancy
CPT/HCPCS: 36415; 76805; 80053; 81001; 84702; 85025; 86900; 86901; 99283